=== PATIENT | male | born 1960 | race Caucasian/White ===

== ENCOUNTER 2021-07-14 15:10 | Emergency (ER) | payer MEDICARE, OTHER ==
[~2021-07-14 15:10] MED LIST: AMLODIPINE BESY10 MG PO; ATENOLOL50 MG PO; GLIPIZIDE10 MG PO; HYDRALAZINE HCL25 MG PO; HYDROCHLOROTHIA25 MG PO; JANUVIA25 MG PO; METFORMIN HCL1000 MG PO; ZESTRIL 40 MG T40 MG PO
[2021-07-14 16:15] LABS: HEMOGLOBIN 13.7 gm/dl (14.0-17.5); RED BLOOD COUNT 4.3 M/UL (4.20-5.50)
[2021-07-14 16:41] LABS: BUN/CREATININE RATIO 32 (0-10)
== END 2021-07-14 19:47 | disposition home or self-care (01) ==
LOC: ER1 15:10
PROVIDERS: Physician Assistant
DX: E11.65 Type 2 diabetes mellitus with hyperglycemia (principal); F17.200 Nicotine dependence, unspecified, uncomplicated; E86.0 Dehydration; I10 Essential (primary) hypertension; Z79.84 Long term (current) use of oral hypoglycemic drugs
CPT/HCPCS: 80053; 85025; 93005; 99285; J7030

== ENCOUNTER 2021-08-29 00:30 | Emergency (ER) | payer MEDICARE, OTHER ==
[2021-08-29 01:37] LABS: HEMOGLOBIN 13.7 gm/dl (14.0-17.5); RED BLOOD COUNT 4.33 M/UL (4.20-5.50); WHITE BLOOD COUNT 4.5 K/UL (4.5-11.0)
[2021-08-29 01:57] LABS: BUN/CREATININE RATIO 22 (0-10)
== END 2021-08-29 03:10 | disposition home or self-care (01) ==
LOC: ER1 00:30
PROVIDERS: Physician Assistant Medical
DX: I10 Essential (primary) hypertension (principal); E11.9 Type 2 diabetes mellitus without complications; F17.210 Nicotine dependence, cigarettes, uncomplicated
CPT/HCPCS: 71045; 80053; 82550; 82553; 84484; 85025; 93005; 99284